=== PATIENT | female | born 1955 | race Caucasian/White ===

== ENCOUNTER 2020-01-12 08:58 | Outpatient (CLI) | payer MEDICARE ==
--- NOTE | 2020-01-12 09:49 | RAD ---
LUMBAR SPINE 3 VIEWS: HISTORY: Low back pain. FINDINGS: Lateral views were taken with neutral, flexion, and extension. Lumbar vertebrae maintain normal height and alignment. Mild loss of disk space at L5-S1. There is a slight anterolisthesis at L5-S1. No evidence of spondylolysis. This slight anterolisthesis does no t significantly change with flexion or extension. Prominent facet hypertrophy is noted at L4-5 and L 5-S1. Moderate facet hypertrophy at the other levels. Mild spurring from the lumbar vertebrae. IMPRESSION: Degenerative changes as described with slight anterolisthesis at L5-S1. POS: AGW
--- NOTE | 2020-01-12 11:11 | CT ---
CT LUMBAR SPINE: Date: 01/12/2020 COMPARISON: None. HISTORY: Back surgery 5 years ago, multiple falls since prior surgery. Back pain and radiculopathy. TECHNIQUE: Axial CT imaging at 3 mm intervals through the lumbar spine without contrast. Coronal and sagittal reformatted imaging obtained. FINDINGS: Evaluation for central canal and/or neural foraminal stenosis is limited on routine CT. There is a cyst suspected in the lower pole of the right kidney. There is minimal anterolisthesis of L5 on S1 measuring approximately 3.0 mm. T12-L1: Mild bilateral facet hypertrophy with no osseous cause of significant central canal or neura l foraminal stenosis. L1-2: Mild bilateral facet hypertrophy with no osseous cause of significant central canal or neural foraminal stenosis. There is right-sided anterior osteophyte formation. L2-3: Mild bilateral facet hypertrophy. No osseous cause of significant central canal or neural fora jaxon stenosis. L3-4: Disc space narrowing and anterior osteophyte formation. Bilateral facet hypertrophy and hypert rophy of the ligamentum flavum with mild bilateral neural foraminal stenosis and mild central canal s tenosis. L4-5: There is prominent bilateral facet hypertrophy with moderate bilateral neural foraminal stenos is. No osseous cause of significant central canal stenosis. L5-S1: Bilateral facet hypertrophy present with moderate bilateral neural foraminal stenosis, left g reater than right. No osseous cause of significant central canal stenosis. No lytic or blastic bone l esion. No acute fracture or dislocation. IMPRESSION: Multilevel lumbar spine degenerative change as described above. POS: MAGY
== END 2020-01-12 08:59 | disposition home or self-care (01) ==
LOC: TBSIIMAG 08:58
PROVIDERS: ATTEND Neurological Surgery
DX: M54.5 Low back pain (principal); M47.816 Spondylosis without myelopathy or radiculopathy, lumbar region; M43.17 Spondylolisthesis, lumbosacral region
CPT/HCPCS: 72100; 72131

== ENCOUNTER 2020-02-26 05:45 | Outpatient (CLI) | payer MEDICARE, OTHER ==
[2020-02-27 14:47] LABS: SARS-CoV-2 MS2 Positive; SARS-CoV-2 N Gene Negative; SARS-CoV-2 S Gene Negative; SARS-CoV-2 by NAA Not Detected (NotDetected); SARS-CoV-2 orf1ab Negative
== END 2020-02-26 05:46 | disposition home or self-care (01) ==
LOC: LABBT 05:45
PROVIDERS: ATTEND Neurological Surgery
DX: M54.16 Radiculopathy, lumbar region (principal); Z20.828 Contact with and (suspected) exposure to other viral communicable diseases
CPT/HCPCS: 87635; U0003

== ENCOUNTER 2020-03-02 05:56 | Day surgery (SDC) | payer MEDICARE ==
[2020-02-26 13:28] VITALS: BMI 27.4
--- NOTE | 2020-03-02 05:24 | HP ---
SUBJECTIVE: Ms. Maria is a very pleasant 64-year-old woman who presents today for evaluation of lower back pain that began back in 2012, for which she reports she had a lumbar fusion procedure from L3 to L5 which sounds like a non-instrumented type procedure with laminectomy from L4-S1. She states that but until 2014 she had done quite well, but then started to have recurrent back pain after having a traumatic injury to her right lower extremity requiring multiple surgeries to correct. At the time of her recovery is when her back pain started to recur. She began to see a surgeon in [place] who performed her prior surgery. Her provider retired and as such switched providers to here in [facility] who began to provide epidural steroid injections, which have helped for roughly one week at a time. Her pains over the last month have now progressed to include bilateral L5 pains. She notes her symptoms are worse in the middle of the night, when sitting for too long or when she has been performing heavy or physical work. MRI from October of 2018 from [facility] reveals overall well-appearing spine with postoperative changes at L4-S1, though I cannot confirm if there is any fusion mass present. Grade 1 slip at L5-S1 is stable on flexion-extension views. We did obtain a CT as well, which does show perhaps more significant encroachment of the lateral recesses at L4-5 which likely explains the pain. PHYSICAL EXAMINATION: She is alert and oriented x3. Gait is mildly antalgic. Lower extremity exam is normal. PAST MEDICAL HISTORY: Significant for hypothyroidism, hyperlipidemia. CURRENT MEDICATIONS: Levothyroxine, atorvastatin. ALLERGIES: NO KNOWN DRUG ALLERGIES. PAST SURGICAL HISTORY: Tonsillectomy, Chandler's neuroma resection, carpal tunnel release on the right and left, lumbar decompression and fusion, ankle surgery and Achilles rupture repair. ASSESSMENT: PLAN: Dr. Cota met with the patient, reviewed imaging and advocated for reoperation L4-5 decompression. He explained to the patient the risks, benefits, and alternatives to the procedure. The patient expressed understanding, elected to move forward with surgery as discussed. I do believe the patient is mentally competent and capable of making medical decisions for herself. We will move forward with surgery as planned. Job ID: [id number]
[2020-03-02] MEDS ORDERED: Thrombin 5000 UNITS/5 ML VIAL ONE (06:31)
[2020-03-02] MEDS ORDERED: Bupivacaine PF 0.5% 30 ML VIAL ONE (06:31)
[2020-03-02] MEDS ORDERED: EPINEPHrine 1 MG/ML AMP ONE (06:31)
[2020-03-02] MEDS ORDERED: SUGAMMADEX SODIUM 200 MG/2 ML VIAL ONE (07:01)
[2020-03-02] MEDS ORDERED: Midazolam HCl 2 mg/2 ml Vial ONE (07:17)
[2020-03-02] MEDS ORDERED: Fentanyl 100 MCG/2 ML VIAL ONE ×3 (07:41→09:52)
[2020-03-02] MEDS ORDERED: Morphine 4 MG/ML VIAL ONE (09:15)
[2020-03-02] MEDS ORDERED: Morphine 2 MG/ML VIAL ONE ×2 (09:38→09:56)
--- NOTE | 2020-03-02 10:45 | OP ---
DATE OF PROCEDURE: 03/02/2020 AGENCY LEGAL COUNSEL: Nilo Roche PA-C INDICATION: Pain. DIAGNOSES: Lumbar stenosis with claudication, radiculopathy. PROCEDURES PERFORMED: Reoperation, exploration of fusion, and decompression at L4-L5. ANESTHESIA: General. DESCRIPTION OF PROCEDURE: The patient was brought into the operating room and placed under general anesthesia. She was flipped from the supine to prone position on the operating room table. A linear incision was planned over the L4-L5 segment, which is in the region of her prior incision. After prepping and draping and after an appropriate operative pause, the incision was created. The soft tissues were swept away from midline. Self-retaining retractors were placed. There was a scar tissue present as well as missing bone along the spinous processes of the L4 and L5 area. We dissected through this area until a [place] was placed for purposes of localization. There was a bone defect present along the inferior aspect of L4, where high-speed cutting drill bit as well as 2, 3, and 4 mm Kerrisons were then used to perform a laminectomy of L4 as well as lateral recess along the facet joint at L4-L5. After completing the decompression, the wound was irrigated. Hemostasis was maintained throughout. The wound was then closed in anatomic layers, and a pressure dressing was applied. There were no known procedural complications. Job ID: [id number]
[2020-03-02] MEDS ORDERED: EPHEDRINE 25 MG/5 ML SYRINGE ONE (14:35)
[2020-03-02] MEDS ORDERED: Dexamethasone 20 MG/5 ML VIAL ONE (14:35)
[2020-03-02] MEDS ORDERED: PROPOFOL 200 MG/20 ML VIAL ONE (14:35)
[2020-03-02] MEDS ORDERED: Ondansetron PF 4 MG/2 ML Vial ONE (14:35)
[2020-03-02] MEDS ORDERED: Glycopyrrolate 0.2 MG/ML 5 ML SYRINGE ONE (14:35)
[2020-03-02] MEDS ORDERED: Lidocaine 1% PF 5 ML VIAL ONE (14:35)
[2020-03-02] MEDS ORDERED: Rocuronium Bromide 10 MG/ML (10ML VIAL) ONE (14:35)
== END 2020-03-02 12:35 | disposition home or self-care (01) ==
LOC: SDC 05:56
PROVIDERS: ATTEND Neurological Surgery
PROC: 01NB0ZZ Release Lumbar Nerve, Open Approach (ICD-10-PCS; principal; 2020-03-02)
DX: M48.062 Spinal stenosis, lumbar region with neurogenic claudication (principal); M54.16 Radiculopathy, lumbar region; E03.9 Hypothyroidism, unspecified; E78.5 Hyperlipidemia, unspecified; Z79.899 Other long term (current) drug therapy; Z88.0 Allergy status to penicillin; Z88.5 Allergy status to narcotic agent; Z98.1 Arthrodesis status
CPT/HCPCS: 63042; 76000; J2270; J0171; J0690; J1100; J2250; J2405; J2704; J3010; S0020

== ENCOUNTER 2022-04-13 08:53 | Outpatient (CLI) | payer MEDICARE | END 2022-04-13 08:54 | disposition home or self-care (01) | LOC: CT 08:53 | PROVIDERS: ATTEND Neurological Surgery | DX: M54.50 Low back pain, unspecified (principal); M47.816 Spondylosis without myelopathy or radiculopathy, lumbar region; M47.817 Spondylosis without myelopathy or radiculopathy, lumbosacral region | CPT/HCPCS: 72131 ==

== ENCOUNTER 2025-02-20 23:43 | Emergency (ER) | payer MEDICARE ==
[2025-02-21] MEDS ORDERED: Ketorolac Tromethamine 30 MG (1 mL) VIAL ONE (00:26)
[2025-02-21 00:41] LABS: #Basophils Less than 0.03 10x3/uL (0.0-0.2); #Eosinophils Less than 0.03 10x3/uL (0.0-0.7); #Monocytes 1.90 10x3/uL (0.11-0.59); #Neutrophils 10.36 10x3/uL (1.40-6.50); %Basophils 0.1 % (0.0-1.0); %Eosinophils 0.1 % (0.0-10.0); %Lymphocytes 14.3 % (21.0-51.0); %Monocytes 13.2 % (0.0-10.0); %Neutrophils 71.7 % (42.0-75.0); Hematocrit 39.9 % (36.0-47.0); Hemoglobin 13.2 g/dL (12.0-16.0); Mean Corpuscular Hemoglobin 29.1 pg (27.0-31.0); Mean Corpuscular Volume 87.9 fL (78.0-98.0); Platelet Count 347 10x3/uL (130-400); Red Blood Cell (RBC) Count 4.54 mill/uL (4.20-5.40); White Blood Cell (WBC) Count 14.44 10x3/uL (4.8-10.8)
[2025-02-21 00:56] LABS: ALT (SGPT) 18 U/L (Less than 34); AST (SGOT) 30 U/L (11-34); Albumin 3.9 g/dL (3.1-4.5); Alkaline Phosphatase 61 U/L (40-110); Anion Gap 15 mmol/L (10-20); BUN (Urea Nitrogen) 26 mg/dL (9.8-20.1); Bilirubin, Total 0.2 mg/dL (0.3-1.2); Calc. Creatinine Clearance 0 mL/min (70-130); Calcium 9.8 mg/dL (7.8-10.44); Carbon Dioxide 20 mmol/L (23-31); Chloride 106 mmol/L (98-107); Globulin 2.9 g/dL (2.4-3.5); Glucose 161 mg/dL (83-110); Potassium 4.2 mmol/L (3.5-5.1); Sodium 137 mmol/L (136-145)
== END 2025-02-21 03:10 | disposition home or self-care (01) ==
LOC: ERS 23:43
DX: R51.9 Headache, unspecified (principal); I10 Essential (primary) hypertension; I67.82 Cerebral ischemia; J06.9 Acute upper respiratory infection, unspecified; E11.9 Type 2 diabetes mellitus without complications; Z55.6 Problems related to health literacy
CPT/HCPCS: 70450; 71045; 80053; 85025; 87428; 93005; 96374; J1885